=== PATIENT | male | born 1980 | race Asian ===

== ENCOUNTER 2022-12-31 15:09 | Emergency (ER) | payer MEDICAID ==
[~2022-12-31] VITALS: Ht 175.3 cm; Wt 81.8 kg
[2022-12-31 15:19] VITALS: TEMP 98.8
[2022-12-31] MEDS ORDERED: FLUORESCEIN SODIUM 1 MG STRIP OD ONE (16:30)
[2022-12-31] MEDS ORDERED: PROPARACAINE HCL 0.5% 15 ML OPHTHALMIC SOLUTION OD ONE (16:30)
[2022-12-31] MEDS ORDERED: FLUORESCEIN SODIUM 1 MG STRIP OS ONE (16:30)
[2022-12-31 16:50] VITALS: BP 124/65; PULSE 75; RESP 16
[2022-12-31] MEDS ORDERED: ERYTHROMYCIN 0.5% 3.5 GM TUBE OPHTHALMIC OINTMENT OU ONE (17:00)
[2022-12-31] MEDS ORDERED: OFLOXACIN 0.3% 5 ML OPHTHALMIC SOLUTION OS ONE (17:00)
== END 2022-12-31 17:34 | disposition home or self-care (01) ==
LOC: EDUNIT# 15:09 → EMS 15:11
DX: H16.002 Unspecified corneal ulcer, left eye (principal); F17.210 Nicotine dependence, cigarettes, uncomplicated; F12.90 Cannabis use, unspecified, uncomplicated
CPT/HCPCS: 99283